=== PATIENT | male | born 1985 | race Hispanic/Latino ===

== ENCOUNTER 2018-12-04 20:09 | Emergency (ER) | payer OTHER ==
[2018-12-04 20:29] VITALS: O2SAT 100
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
[2018-12-04 20:49] VITALS: PULSE 75; RESP 20; TEMP 98.1
[2018-12-04 21:22] VITALS: BP 155/83
== END 2018-12-04 21:19 | disposition home or self-care (01) ==
LOC: C.ER 20:09
DX: S20.219A Contusion of unspecified front wall of thorax, initial encounter (principal); Y08.89XA Assault by other specified means, initial encounter; Y92.239 Unspecified place in hospital as the place of occurrence of the external cause; Y99.0 Civilian activity done for income or pay